=== PATIENT | female | born 1960 | race African-American/Black ===

== ENCOUNTER 2017-05-19 16:49 | Inpatient (IN) | payer MEDICARE, OTHER ==
[~2017-05-19] VITALS: Ht 162.6 cm; Wt 82.6 kg
--- NOTE | ~2017-05-19 | HP ---
Unit #: [id number] #: [id number] Patient: CHAD WALLACE [id number] [place] [address] [id number] MR#: [id number] NAME: CHAD WALLACE ROOM: [facility] Age: 56 Sex: F Admission Date: 05/19/2017 : 1960 Attending Physician: Boaz Harrison M.D. Admitting Physician: Boaz Harrison M.D. Primary Care Physician: Generic Doctor Not In System HISTORY AND PHYSICAL HISTORY OF PRESENT ILLNESS Chad is a 56-year-old female admitted on 05/19/[address] [place] [address] for suicidal ideation and depression. PAST MEDICAL HISTORY 1. Obesity. 2. Mitral valve replacement. 3. Arrhythmia. 4. Hypothyroidism. PAST SURGICAL HISTORY 1. Mitral valve replacement. 2. Pacemaker placement. SOCIAL HISTORY Smokes 4 cigarettes daily. Denies alcohol or illegal drug use. She is currently single and currently living with a friend. FAMILY HISTORY Noncontributory. REVIEW OF SYSTEMS CONSTITUTIONAL: No fever or chills. HEENT: Denies any sore throat, ear pain or runny nose. CARDIOVASCULAR: Denies chest pain, irregular heart rhythm or palpitations. CHEST: Denies shortness of breath or cough. No hemoptysis. GASTROINTESTINAL: Denies nausea, vomiting, diarrhea or chronic constipation. ENDOCRINE: Denies history of increased thirst or urination. No recent significant weight loss or gain. GENITOURINARY: Denies dysuria, frequency, or hematuria. SKIN: Denies any rashes. HEMATOLOGIC: Denies history of increased bleeding or bruising. MUSCULOSKELETAL: Denies any hot, swollen joints. No generalized muscle pain. NEUROLOGIC: Denies problems with vision or speech. No frequent, severe headaches. No numbness, tingling or weakness in any extremities. Denies loss of bladder or bowel control. CURRENT MEDICATIONS 1. Omeprazole. 2. Levothyroxine. 3. Potassium. Unit #: [id number] #: [id number] Patient: CHAD WALLACE 4. Aspirin. ALLERGIES No known drug allergies. PHYSICAL EXAMINATION GENERAL: Alert, oriented, no acute distress. VITAL SIGNS: Blood pressure 161/97, heart rate 76, temperature 98.3. HEIGHT: 5 feet 4. WEIGHT: 182 pounds. SKIN: Warm, dry. No rashes or lesions, track hardin, cuts, etc. HEENT: Normocephalic. TMs not viewed. Oronasal passages clear. Conjunctivae clear. PERRLA. EOM is intact. NECK: No lymphadenopathy or thyromegaly. HEART: Regular rate and rhythm. No murmur, gallop, or rub. LUNGS: Clear to auscultation bilaterally. ABDOMEN: Soft, nontender without palpable masses or hepatosplenomegaly. : Not assessed. EXTREMITIES: No evidence of cyanosis, clubbing, or edema. Moves all extremities independently without obvious deficit. NEUROLOGICAL: Grossly within normal limits. Cranial Nerves: II: Visual warner are intact. III, IV AND : Extraocular movements are intact. Pupils are equal, round and reactive to light. V: Facial sensation is grossly normal. VII: Facial movements and expression are normal. VIII: Auditory acuity grossly intact. IX, X: Uvula is midline. Phonation is normal. XI: Patient shrugs shoulders and turns head normally. XII: Tongue protrudes in the midline. Sensory and Motor Function: Sensory and motor sensation is grossly normal. Motor: moves all extremities well. Coordination: Gait is normal. Deep Tendon Reflexes: Intact. IMPRESSION 1. Psychiatric admission. 2. Obesity. 3. Mitral valve replacement. 4. Arrhythmia. 5. Hypothyroidism. 6. Pacemaker placement. RECOMMENDATIONS PSYCHIATRIC: Per psychiatrist. MEDICAL: No contraindication to participating in this facility's activities. MEDICAL PROGNOSIS Good. MEDICAL CONDITION Stable. Dictated by... Melody Mike A.P.R.N. MJAniket/dagoberto Unit #: [id number] #: [id number] Patient: CHAD WALLACE TD: 05/20/2017 13:52 JOB #: [id number] HISTORY AND PHYSICAL Page 1 of 1 X MELODY WOO APRN X HISTORY AND PHYSICAL
--- NOTE | ~2017-05-19 | PN ---
Unit #: [id number] #: [id number] Patient: CHAD WALLACE [id number] [facility] [address] [place] [address] [id number] I MR#: [id number] NAME: CHAD WALLACE ROOM: [facility] Age: 56 Sex: F Admission Date: 05/19/2017 : 1960 Attending Physician: Boaz Harrison M.D. Admitting Physician: Boaz Harrison M.D. Primary Care Physician: [facility] Doctor Not In System Tail NOTES DATE OF SERVICE 05/22/2017 DISCUSSION Randi could not take Zoloft because of potential drug interaction with her warfarin, and so this was discontinued yesterday. We discussed further options and I rechecked her drug interactions for Coumadin, settling on Wellbutrin due to its activating nature and lack of drug interactions. Her mood remains depressed with congruent affect. She is alert and fully oriented. Her memory and concentration are intact. Her thought processes are logical with no active psychosis. She continues to report suicidal ideation. ASSESSMENT Major depression recurrent. PLAN Start Wellbutrin XL 150 mg daily. Dictated by... Boaz Harrison M.D. TIFFANY/anu TD: 05/23/2017 23:04 JOB #: [id number] Tail NOTES Page 1 of 1 X Boaz Harrison MD PROGRESS NOTE
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
--- NOTE | ~2017-05-19 | PN ---
Unit #: [id number] #: [id number] Patient: CHAD WALLACE [id number] [facility] [address] [place] [address] [id number] I MR#: [id number] NAME: CHAD WALLACE ROOM: [facility] Age: 56 Sex: F Admission Date: 05/19/2017 : 1960 Attending Physician: Boaz Harrison M.D. Admitting Physician: Boaz Harrison M.D. Primary Care Physician: Morales Not Listed [facility] PROGRESS NOTES DATE 05/24/2017 DISCUSSION Randi continues to be depressed although she is participating more in psychotherapy groups and activities and is a little more interactive with staff and peers. She is alert and fully oriented. Her memory and concentration are intact. Her thought processes are logical with no active psychosis. She is compliant with her medical treatments. Her PT is increasing and is now in the range of 2.0. ASSESSMENT Major depression PLAN Continue current treatment plan with Wellbutrin. Dictated by... Brian Rendon/lorelei TD: 06/01/2017 03:11 JOB #: [id number] [facility] PROGRESS NOTES Page 1 of 1 X Boaz Harrison MD PROGRESS NOTE
--- NOTE | ~2017-05-19 | PN ---
Unit #: [id number] #: [id number] Patient: CHAD WALLACE [id number] [facility] [address] [place] [address] [id number] I MR#: [id number] NAME: CHAD WALLACE ROOM: [facility] Age: 56 Sex: F Admission Date: 05/19/2017 : 1960 Attending Physician: Boaz Harrison M.D. Admitting Physician: Boaz Harrison M.D. Primary Care Physician: Generic Doctor Not In System [facility] PROGRESS NOTES DATE 05/28/2017 DISCUSSION Chad continues to show no mild improvement today. She is participating actively in groups and activities and tolerating her medications an no adverse side effects. She is alert and fully oriented with no active psychosis. She does report ongoing vague SI. ASSESSMENT Major depression. PLAN Continue current treatment plans. Dictated by... Boaz Harrison M.D. H/ts TD: 05/31/2017 09:34 JOB #: [id number] [facility] PROGRESS NOTES Page 1 of 1 X Boaz Harrison MD X PROGRESS NOTE
--- NOTE | ~2017-05-19 | PN ---
Unit #: [id number] #: [id number] Patient: CHAD WALLACE [id number] [facility] [address] [place] [address] [id number] I MR#: [id number] NAME: CHAD WALLACE ROOM: [facility] Age: 56 Sex: F Admission Date: 05/19/2017 : 1960 Attending Physician: Boaz Harrison M.D. Admitting Physician: Boaz Harrison M.D. Primary Care Physician: Generic Doctor Not In System [place] PROGRESS NOTES DATE OF SERVICE: 05/23/2017 DISCUSSION Chad continues to be depressed with a downcast affect. She is tearful upon approach. She is participating in groups and activities. She is alert and fully oriented with no psychosis, but ongoing SI. She has begun full medical therapy at this point. ASSESSMENT Major depression. PLAN We will check another prothrombin time in the morning and continue with Wellbutrin. Dictated by... Brian Rendon/casper TD: 05/31/2017 02:06 JOB #: [id number] [facility] PROGRESS NOTES Page 1 of 1 X Boaz Harrison MD PROGRESS NOTE
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
--- NOTE | ~2017-05-19 | PN ---
Unit #: [id number] #: [id number] Patient: CHAD WALLACE [id number] [facility] [address] [place] [address] [id number] I MR#: [id number] NAME: CHAD WALLACE ROOM: [facility] Age: 56 Sex: F Admission Date: 05/19/2017 : 1960 Attending Physician: Boaz Harrison M.D. Admitting Physician: Boaz Harrison M.D. Primary Care Physician: Morales Moreira Listed [facility] PROGRESS NOTES DATE 05/26/2017 DISCUSSION Randi slept better last night with trazodone and says that her mood is improving. She has a brighter affect this morning as well. She is alert and fully oriented. Her memory and concentration are intact and her thought processes are logical with no active psychosis. She continues to report suicidal ideation but says this is better than yesterday. ASSESSMENT Major depression. PLAN Continue current treatment plan and anticipate discharge after the weekend. Dictated by... Brian eRndon/lorelei TD: 06/01/2017 03:32 JOB #: [id number] [facility] PROGRESS NOTES Page 1 of 1 X Boaz Harrison MD PROGRESS NOTE
--- NOTE | ~2017-05-19 | PN ---
Unit #: [id number] #: [id number] Patient: CHAD WALLACE [id number] [facility] [address] [place] [address] [id number] I MR#: [id number] NAME: CHAD WALLACE ROOM: [facility] Age: 56 Sex: F Admission Date: 05/19/2017 : 1960 Attending Physician: Boaz Harrison M.D. Admitting Physician: Boaz Harrison M.D. Primary Care Physician: Morales Moreira Listed N[facility] PROGRESS NOTES DATE 05/25/2017 DISCUSSION Randi complains of some difficulty sleeping and chronic pain. She reports that she is doing a little bit better in terms of her mood and is tolerating Wellbutrin with no significant adverse side effects. She is alert and fully oriented today. Memory and concentration are fair. Thought processes are logical with no active psychosis. She does continue to ruminate on suicide. ASSESSMENT Major depression. PLAN Will add trazodone for insomnia and provide ibuprofen as needed for pain. The patient will continue in psychotherapy groups and activities. Dictated by... Brian Rendon/lorelei TD: 06/01/2017 03:30 JOB #: [id number] [facility] PROGRESS NOTES Page 1 of 1 X Boaz Harrison MD PROGRESS NOTE
--- NOTE | ~2017-05-19 | DS ---
Unit #: [id number] #: [id number] Patient: CHAD WALLACE [id number] [place] [address] [id number] I MR#: [id number] NAME: CHAD WALLACE ROOM: [facility] Age: 56 Sex: F Admission Date: 05/19/2017 : 1960 Discharge Date: 05/30/2017 Attending Physician: Boaz Harrison M.D. Primary Care Physician: Generic Doctor Not In System DISCHARGE SUMMARY REASON FOR ADMISSION Chad is a 56-year-old woman, who presented reporting increasing hopelessness, helplessness, and depression and that she had not been receiving sufficient antidepression treatment. She had started on medication from the [facility], but had not taken it yet and felt it would "take too long to work." She was unable to contract for safety and was admitted for stabilization. DIAGNOSTIC STUDIES LABORATORY RESULTS: The patient's prothrombin time as measured on 05/29/2017 was 27.5 with an INR of 2.5. HOSPITAL COURSE Chad was admitted and placed on suicide precautions. Citalopram was changed to Zoloft 50 mg daily, but the patient was unable to take this due to a reported drug interaction with her Coumadin. This was changed to Wellbutrin XL 150 mg daily and later increased to 300 mg daily with good tolerance. Trazodone was later added for insomnia after the patient complained of difficulty sleeping. She participated in unit groups and activities and her suicidal ideation gradually improved throughout the hospitalization. She had a brighter affect and a good mood, and on the date of discharge, she was once again able to contract for safety with no suicidal ideation, intent, or plan. DISCHARGE DIAGNOSES AXIS I: Major depression, recurrent. AXIS II: No diagnosis. AXIS III: Hypertension; coronary artery disease, status post defibrillator placement, anticoagulation therapy; and history of asthma. AXIS IV: AXIS V: DISCHARGE INSTRUCTIONS Follow up with primary care physician and [facility] mental health. DISCHARGE MEDICATIONS Wellbutrin XL 300 mg daily for depression, trazodone 50 mg at bedtime as needed for insomnia, and Coumadin 7.5 daily at 4 p.m. for anticoagulation. Primary care medicines were Synthroid 100 mcg daily for hypothyroidism, Klor-Con 10 mEq daily for potassium replacement, aspirin 81 mg daily for anticoagulation, Lasix 20 mg daily for hypertension, Zestril 20 mg daily Unit #: [id number] #: [id number] Patient: CHAD WALLACE for hypertension, Lipitor 40 mg at bedtime for cholesterol, Coreg 6.25 mg b.i.d. for hypertension, Proventil inhaler 2 puffs every 4 hours as needed for COPD, QVAR inhaler 2 puffs b.i.d. for COPD, and Protonix 40 mg daily for GERD. CONDITION AT DISCHARGE Improved. PROGNOSIS Fair to good. DIET AND ACTIVITY Per primary care doctor. Dictated by... Brian Rendon/casper TD: 05/31/2017 18:50 JOB #: [id number] DISCHARGE SUMMARY Page 1 of 1 X Boaz Harrison MD X DISCHARGE SUMMARY
[2017-05-22 10:05] LABS: BASOPHIL% 0.5 % (0-2.5); EOSINOPHIL# 0.2 X10e3 (0-0.7); EOSINOPHIL% 2.2 % (0.0-7.0); HEMATOCRIT 42.4 % (35.0-45.0); HEMOGLOBIN 13.5 gm/dL (12.0-16.0); LYMPHOCYTE# 2.5 X10e3 (1.0-3.5); LYMPHOCYTE% 36.7 % (17.0-45.0); MEAN CELL VOLUME 91.5 FL (83-96); MEAN CORPUSCULAR HEMOGLOBIN 29.1 PG (28-34); MEAN CORPUSCULAR HGB CONC 31.8 g/dL (30-36); MONOCYTE# 0.6 X10e3 (0-1.0); MONOCYTE% 8.9 % (3.0-12.0); NEUTROPHIL# 3.6 X10e3 (1.5-7.1); NEUTROPHIL% 51.7 % (40-75); PLATELET COUNT 193 X10e3 (140-420); RED BLOOD COUNT 4.63 X10e (3.90-5.30); RED CELL DISTRIBUTION WIDTH 14.1 % (11.0-15.5); WHITE BLOOD COUNT 6.9 X10e3 (4.0-10.5)
[2017-05-22 10:06] LABS: DIFF IND NO
[2017-05-22 10:13] LABS: INR 1.2; PROTHROMBIN TIME (PATIENT) 12.7 SECONDS (10.0-11.7)
[2017-05-22 10:28] LABS: ALBUMIN SERUM 3.3 g/dL (3.5-5.0); BILIRUBIN,TOTAL 0.5 mg/dL (0.2-2.0); CALCIUM SERUM 8.9 mg/dL (8.4-10.2); CREATININE SERUM 0.8 mg/dL (0.6-1.4); GLOM FILT RATE Estimated 95.6 mL/min (>60); POTASSIUM 4.2 mmol/L (3.5-5.1); PROTEIN TOTAL SERUM 6.3 g/dL (6.0-8.3)
[2017-05-23 12:50] LABS: INR 1.2; PROTHROMBIN TIME (PATIENT) 13.1 SECONDS (10.0-11.7)
[2017-05-24 09:52] LABS: URINE APPEARANCE CLEAR; URINE BILIRUBIN NEG (NEG); URINE BLOOD NEG (NEG); URINE COLOR YELLOW; URINE GLUCOSE NEG (NEG); URINE KETONE NEG (NEG); URINE LEUKOCYTE ESTERASE NEG (NEG); URINE NITRATE NEG (NEG); URINE PROTEIN NEG (NEG); URINE SPECIFIC GRAVITY 1.009 (1.003-1.035); URINE UROBILINOGEN 0.2 MG/DL (NEG)
[2017-05-24 10:09] LABS: AMPHETAMINE NEG (NEG); BARBITURATES NEG (NEG); BENZODIAZEPINES NEG (NEG); COCAINE NEG (NEG); MARIJUANA NEG (NEG); OPIATES NEG (NEG); TRICYCLIC ANTIDEPRESSANTS NEG (NEG); U METHADONE NEG (NEG)
[2017-05-24 12:48] LABS: INR 1.4; PROTHROMBIN TIME (PATIENT) 14.7 SECONDS (10.0-11.7)
[2017-05-26 09:48] LABS: INR 2.1
[2017-05-26 10:01] LABS: PROTHROMBIN TIME (PATIENT) 22.4 SECONDS (10.0-11.7)
[2017-05-29 09:48] LABS: INR 2.5; PROTHROMBIN TIME (PATIENT) 27.5 SECONDS (10.0-11.7)
== END 2017-05-30 13:45 | DRG 885 ==
LOC: P2L 20:11
PROVIDERS: Physician Assistant Medical; Psychiatry & Neurology Psychiatry
DX: F33.9 Major depressive disorder, recurrent, unspecified (principal); I10 Essential (primary) hypertension; I25.10 Atherosclerotic heart disease of native coronary artery without angina pectoris; Z95.810 Presence of automatic (implantable) cardiac defibrillator; Z81.1 Family history of alcohol abuse and dependence; Z81.8 Family history of other mental and behavioral disorders; E03.9 Hypothyroidism, unspecified; Z79.01 Long term (current) use of anticoagulants
CPT/HCPCS: 80053; 80307; 81003; 85025; 85610